=== PATIENT | female | born 1945 | race African-American/Black ===

== ENCOUNTER 2020-03-25 07:53 | Outpatient (CLI) | payer MEDICARE | END 2020-03-25 20:41 | disposition home or self-care (01) | LOC: MCT 07:53 | PROVIDERS: ATTEND Family Medicine | DX: R22.0 Localized swelling, mass and lump, head (principal) | CPT/HCPCS: 70450 ==

== ENCOUNTER 2020-04-06 18:36 | Emergency (ER) | payer MEDICARE, OTHER ==
[~2020-04-06] VITALS: Ht 172.7 cm; Wt 83.9 kg
[2020-04-06 18:41] VITALS: BP 165/50
--- NOTE | 2020-04-06 19:09 | NUR ---
SEE COMPLETE ASSESSMENT FOR FUTHER DETAILS.
--- NOTE | 2020-04-06 19:09 | NUR ---
RECIVED REPORT FROM BALDEMAR PORTER, CONTINUATION OF CARE.
--- NOTE | 2020-04-06 19:10 | NUR ---
PT TAKEN TO CT VIA GURNEY, RT AT BEDSIDE WITH PT.
--- NOTE | 2020-04-06 21:12 | NUR ---
PERNIEL CARE DONE FOR PT. PT HAD URINATED AND HAD BM IN DIAPER. PT SKIN LEFT CLEAN AND DRY. PT REPOSITIONED IN BED FOR COMFORT.
--- NOTE | 2020-04-06 22:58 | NUR ---
SPOKE WITH JASON TO GIVE REPORT ON PATIENT WHO IS RETURNING TO [facility] [place] [facility] S[facility]P D/C. Addendum: 04/06/20 at 2303 by ANDERSON QUYNH PORTER.
--- NOTE | 2020-04-06 23:06 | NUR ---
Patient appears to be resting comfortably in bed. Vital Signs within normal limits. Respirations even and unlabored. Pt repositoned in bed. Bed locked and in lowest position.
[2020-04-07 00:20] VITALS: BP 139/78
--- NOTE | 2020-04-07 00:20 | NUR ---
Patient discharged with v/s stable. Written and verbal after care instructions given and explained to patient caregiver via telephone. Ambulance Transport to alf. All questions addressed prior to discharge. Advised to follow up with PMD. Belongings sent with patient, ID band removed.
== END 2020-04-07 00:20 | disposition home or self-care (01) ==
LOC: MED 18:36
DX: R22.0 Localized swelling, mass and lump, head (principal); E11.9 Type 2 diabetes mellitus without complications; I10 Essential (primary) hypertension; Z98.890 Other specified postprocedural states
CPT/HCPCS: 70450; 99284

== ENCOUNTER 2021-09-26 17:56 | Inpatient (IN) | payer OTHER, MEDICARE ==
[~2021-09-26] VITALS: Ht 167.6 cm; Wt 104.3 kg
[2021-09-26 18:02] VITALS: BP 217/76
--- NOTE | 2021-09-26 18:30 | NUR ---
RAD AT BEDSIDE
--- NOTE | 2021-09-26 18:56 | NUR ---
ATTEMPTED TO STRAIGHT CATH, NO URINE NOTED, ERMD MADE AWARE
[2021-09-26 19:00] LABS: BASOPHILS # (AUTO) 0.1 K/uL (0.00-0.22); EOSINOPHILS # (AUTO) 0.3 K/uL (0-0.4); EOSINOPHILS % (AUTO) 5.3 % (0.0-4.0); HEMATOCRIT 37.6 % (36-48); LYMPHOCYTES % (AUTO) 30.5 % (20.5-51.1); MEAN CORPUSCULAR HEMOGLOBIN 28 pg (27-31); MEAN CORPUSCULAR HGB CONC 32 g/dL (33-37); MEAN CORPUSCULAR VOLUME 87.5 fL (80-94); MONOCYTES # (AUTO) 0.4 K/uL (0.8-1.0); MONOCYTES % (AUTO) 5.7 % (1.7-9.3); NEUTROPHILS # (AUTO) 3.7 K/uL (1.8-7.7); NEUTROPHILS % (AUTO) 57.5 % (42.2-75.2); PLATELET COUNT (AUTO) 334 K/uL (140-450); RED BLOOD CELL COUNT(AUTO) 4.29 MIL/uL (4.20-5.40); RED CELL DISTRIBUTION WIDTH 15.9 % (11.6-13.7); WHITE BLOOD COUNT (AUTO) 6.5 K/uL (4.8-10.8)
--- NOTE | 2021-09-26 19:19 | NUR ---
Pt report given to ZOYA PORTER. Transfer of care at this time.
[2021-09-26 19:21] LABS: ALBUMIN 3.2 g/dL (3.4-5.0); ASPARTATE AMINOTRANSFERASE 21 U/L (15-37); CHLORIDE 104 mmol/L (98-107); CREATININE 0.8 mg/dL (0.6-1.3); GLUCOSE 141 mg/dL (74-106); SODIUM SERUM 142 mmol/L (136-145); TOTAL BILIRUBIN 0.4 mg/dL (0.0-1.0); UREA NITROGEN, BLOOD 21 mg/dL (7-18)
--- NOTE | 2021-09-26 19:30 | NUR ---
RECEIVED PT ON VENT WITH A/C 16, VT 450CC FIO2 40 %, PEEP 5CM. PUREWICK IN PLACE, PEG INTACT
[2021-09-26] MEDS ORDERED: cefTRIAXone 1,000 MG VIAL ONE (20:47)
[2021-09-26 21:00] LABS: APPEARANCE,URINE CLOUDY (CLEAR); BILIRUBIN,URINE NEGATIVE (NEGATIVE); BLOOD, URINE 2+ (NEGATIVE); COLOR,URINE YELLOW (YELLOW); LEUKOCYTE ESTERASE ,URINE 3+ (NEGATIVE); NITRITE, URINE NEGATIVE (NEGATIVE); UGLUCOSE NEGATIVE (NEGATIVE)
[2021-09-26 21:22] LABS: RBC,URINE 11-20 (MOD) /HPF (0-5); WBC,URINE 20-60 /HPF (0-5)
--- NOTE | 2021-09-26 22:00 | NUR ---
UA OBTAINED, DIPPED AND RESULTS TO CHART
[2021-09-26] MEDS ORDERED: ACETAMINOPHEN 325 MG TAB PO PRN (23:10)
[2021-09-26] MEDS ORDERED: HYDROcodone/APAP 7.5/325 MG 1 TAB PO PRN (23:10)
[2021-09-26] MEDS ORDERED: guaiFENesin DM 200/20 MG-10 ML 10 ML UDC PO PRN (23:10)
[2021-09-26] MEDS ORDERED: ZOLPIDEM 5 MG TAB PO PRN (23:10)
[2021-09-26] MEDS ORDERED: POTASSIUM CHLORIDE 10 MEQ TABER PO PRN (23:10)
[2021-09-26] MEDS ORDERED: ONDANSETRON 4 MG/2 ML VIAL IM/IVP PRN (23:10)
[2021-09-26] MEDS ORDERED: DOCUSATE SODIUM 100 MG GELCAP PO PRN (23:10)
[2021-09-26 23:33] LABS: PROTHROMBIN TIME 10.5 secs (10.8-13.4)
[2021-09-26 23:43] LABS: CHOL/HDL RATIO 4.3 (1-4.5); FREE T4 (FREE THYROXINE) 1.59 ng/dL (0.76-1.46); MAGNESIUM 2.2 mg/dL (1.8-2.4); PHOSPHORUS 4.5 mg/dL (2.5-4.9); THYROID STIMULATING HORMONE 2.08 uIU/mL (0.34-3.74)
--- NOTE | 2021-09-27 | NUR ---
REPOSITIONED. SUCTIONED VIA TRACH PER RT
--- NOTE | 2021-09-27 03:20 | NUR ---
TO 110A VIA GURNEY, ATTACHED TO CM, ATTACHED TO VENT. RN, ERT, AND RT ACCOMPANYING
--- NOTE | 2021-09-27 03:30 | NUR ---
RECEIVED BEDSIDE HAND OFF REPORT FROM ER NURSE ZOYA AFTER ARRIVAL ON THE MST UNIT FOR CONTINUITY OF CARE.NEW ADMIT ARRIVED VIA GURNEY WITH VENT AND RESPIRATORY PLUS 3 ADDITIONAL PEOPLE TO TRANSFER PT TO RM 110 B BED AND SET UP. PT IS TRACH TO VENT WITH SETTINGS: FIO2-40, PEEP-5, TV-450, RATE-16 . ON TELE: ST WITH FREQ PAC'S. HAS IV L THUMB 22G FLUSHED AND PATENT. PEG TUBE LUQ. PT IS NPO. NO FEEDING AT THIS TIME. VSS BP HIGH ADMIT 0400:BP-124/95, P-98, RR-18, T-98.6, Y5RVM=53%.PT'S SKIN INTACT BUT SCALY. HAS FOOT DROP. INCONTINENT BUT PUREWICK IN PLACE. NO DRAINAGE NOTED. ALL SAFETY MEASURES IN PLACE. CALL LIGHT WITHIN REACH. WILL CONTINUE TO MONITOR.
[2021-09-27] MEDS: DEXT 5% /NACL 0.9% 1,000 ML IV SCH ×3 (06:00→22:27)
--- NOTE | 2021-09-27 06:30 | NUR ---
IVF STARTED D50.9NS @85CC/HR PER PUMP. WILL ENDORSE PT REPORT TO AM NURSE TO FOLLOW UP.
[2021-09-27 06:46] LABS: BASOPHILS # (AUTO) 0.1 K/uL (0.00-0.22); BASOPHILS % (AUTO) 0.7 % (0.0-2.0); EOSINOPHILS # (AUTO) 0.6 K/uL (0-0.4); EOSINOPHILS % (AUTO) 7.4 % (0.0-4.0); HEMATOCRIT 35.7 % (36-48); HEMOGLOBIN 11.6 g/dL (12.0-16.0); LYMPHOCYTES % (AUTO) 12.5 % (20.5-51.1); MEAN CORPUSCULAR HEMOGLOBIN 28 pg (27-31); MEAN CORPUSCULAR HGB CONC 33 g/dL (33-37); MEAN CORPUSCULAR VOLUME 86.6 fL (80-94); MONOCYTES # (AUTO) 0.4 K/uL (0.8-1.0); MONOCYTES % (AUTO) 5.1 % (1.7-9.3); NEUTROPHILS # (AUTO) 6.1 K/uL (1.8-7.7); NEUTROPHILS % (AUTO) 74.3 % (42.2-75.2); PLATELET COUNT (AUTO) 335 K/uL (140-450); RED BLOOD CELL COUNT(AUTO) 4.12 MIL/uL (4.20-5.40); WHITE BLOOD COUNT (AUTO) 8.2 K/uL (4.8-10.8)
[2021-09-27 06:48] LABS: ANION GAP 11.3 (8-16); CARBON DIOXIDE 30.3 mmol/L (21-32); CHLORIDE 105 mmol/L (98-107); CREATININE 0.7 mg/dL (0.6-1.3); POTASSIUM 3.6 mmol/L (3.5-5.1); SODIUM SERUM 143 mmol/L (136-145); UREA NITROGEN, BLOOD 16 mg/dL (7-18)
[2021-09-27 07:10] LABS: GLUCOSE 151 mg/dL (74-106)
[2021-09-27 08:00] VITALS: BP 171/65
--- NOTE | 2021-09-27 08:00 | NUR ---
RECEIVED PT ON XIONG AC 450, RR16, +5, 32%. WHEELS LOCKED AND PLUGGED INTO RED OUTLET. AMBUBAG AT BEDSIDE. ALL ALARMS ARE SET AND AUDIBLE. PT WAS RESTING COMFORTABLY.
--- NOTE | 2021-09-27 08:00 | NUR ---
RECEIVE ENDORSEMENT FROM PM SHIFT NURSE THAT PATIENT REST IN BED; JORJE TOUSSAINT PATENT, D5NS INFUSING AT 85ML/HR. WILL CONTINUE TO MONITOR.
--- NOTE | 2021-09-27 10:47 | NUR ---
PATIENT HAS BEEN SCREENED AND CATEGORIZED HIGH NUTRITION RISK. PATIENT WILL BE SEEN WITHIN 1-2 DA[address] OF ADMISSION. EMELYN DUFF RD
[2021-09-27] MEDS: PANTOPRAZOLE 40 MG TABEC PO SCH (11:40)
[2021-09-27 12:00] VITALS: BP 156/52
--- NOTE | 2021-09-27 13:00 | NUR ---
RECEIVED CALL FROM PATIENT'S DAUGHTER THAT STATES PATIENT'S THIS HOSPITAL VISIT PURPOSE IS HAVE PEG-TUBE AND TRACH REPLACEMENT WITH NO NEW IMMUNIZATION GIVEN. NURSE CHECKED PEG-TUBE RESIDUAL NORMAL. PCP INFORMED W/ NO NEW ORDER AT THIS TIME. WILL CONTINUE TO MONITOR.
--- NOTE | 2021-09-27 13:36 | NUR ---
DC PLANNING: THE PATIENT PRESENTED FROM HOME WITH A MALFUNCTIONING G-TUBE, H/O OF ICH, CVA, DM , HTN, QUADRIPLEGIA AND RESPIRATORY FAILURE, IS TRACH/VENT/PEG. UA DIP POSITIVE, STARTED ON ROCEPHIN IV AND IVF'S. MINERVA SPOKE WITH THE PATIENTS DAUGHTER BY PHONE AND CONFIRMED HER ADDRESS AND PHONE NUMBER, PATIENT LIVES IN [address] WHICH IS A SECOND FLOOR APARTMENT. THE PATIENT IS T[employer] AND HER DAUGHTER IS HER IHSS WORKER. SHE HAS DME OF VENTILATOR, O2, HOSPITAL BED, SUCTION MACHINE AND SET UP AND SHEA LIFT, WC AND SHOWER BENCH ARE REQUESTED. THE PATIENTS PEG FEEDINGS ARE BOLUS BY [employer] AND THE PATIENT IS ON SERVICE WITH [employer] ([phone]). MINERVA SPOKE WITH SYLVIA AT [facility], THE PATIENT IS BEING SEEN THROUGH THE WAIVER PROGRAM [facility] ON [place], CM WILL FAX ORDER AND CLINICALS TO THEM TO RESUME SERVICE UNDER PATIENTS MEDICARE B WHEN SHE IS READY TO DISCHARGE. SYLVIA CONFIRMED THAT PATIENTS RT AND DME ARE PROVIDED BY [employer] ([phone]). MINERVA SPOKE WITH [facility] REGARDING A WC AND SHOWER BENCH, THE SHOWER BENCH IS OUT OF POCKET. ONCE ORDER FOR WC IS FAXED TO THEM THEY WILL SEND THE FORM THAT NEEDS TO BE COMPLETED TO PROCESS THE ORDER. PATIENT WILL REQUIRE AMBULANCE TRANSPORT HOME WHEN CLINICALLY STABLE, MINERVA WILL SPEAK WITH [facility] TO CONFIRM COVERAGE OF TRANSPORT. CM WILL FOLLOW. Addendum: 09/29/21 at 1421 by Bessie Carpio CM DC PLANNING: PATIENT WITH POSITIVE URINE CULTURE, WILL LIKELY NEED IV ABX. MINERVA SPOKE WITH [employer], THEY WILL CHECK TO SEE IF THEY ARE ABLE TO PROVIDE COVERAGE. CM ALSO SPOKE WITH THE PATIENTS DAUGHTER AND CONFIRMED THAT SHE IS WILLING TO LEARN HOW TO ADMINISTER IV ABX. CM WILL FOLLOW. Addendum: 10/02/21 at 1104 by Bessie Carpio CM DC PLANNING: PATIENT TO DC HOME TODAY ON PO ABX VIA G-TUBE. TRANSPORT HOME ARRANGED WITH [facility] CCT, COMMUNITY LIAISON TIME [phone]. PATIENT DAUGHTER IS AWARE OF DC AND COMMUNITY LIAISON TIME. MINERVA ALSO SPOKE WITH [facility] TO RESUME SERVICES. MINERVA WILL FOLLOW. Addendum: 10/02/21 at 1633 by Bessie Carpio CM DC PLANNING: RECEIVED A CALL FROM THE CHARGE NURSE EAMON ASKING CM TO SPEAK WITH [facility] REGARDING THE PATIENTS VENT SETTINGS. CM ASKED RT TO SPEAK WITH [facility] AT BEDSIDE, CM ALSO WENT TO THEM. AFTER RT SPOKE WITH THE [facility] NURSE HE WAS COMFORTABLE TRANSPORTING PATIENT BUT WAS WAITING FOR MORE STAFF TO HELP CARRY THE GURNEY UPSTAIRS. CM SPOKE WITH THE PATIENTS DAUGHTER SEVERAL TIMES, SHE STATES THAT THE [facility] RESP. RT CAME TO THE HOUSE TO SET THE VENTILATOR, HER DAUGHTER ALSO STATES THAT SHE'S COMFORTABLE ATTACHING THE PATIENT TO THE HOME VENTILATOR THE RT WON'T BE THERE BUT WILL BE CLINICAL EDUCATION MANAGER. MINERVA EXPLAINED THAT THE [facility] STAFF WON'T TRANSITION HER MOTHER TO THE HOME VENTILATOR AND NEEDED TO CONFIRM THAT SHE IS ABLE TO DO THIS. MINERVA WILL FOLLOW.
--- NOTE | 2021-09-27 15:05 | NUR ---
PT. WITH LOW IDALIA SCALE AT MODERATE TO HIGH RISK, CONTINUE TO FOLLOW PRESSURE INJURY PREVENTION INTERVENTIONS. -POSITIONING: TURN AND REPOSITION PATIENT Q 2H OR SOONER USE PILLOWS TO KEEP BONY PROMINENCES FROM DIRECT CONTACT WITH SURFACES USE REPOSITIONING WEDGES TO PROVIDE 30-DEGREE ANGLE FOR SIDE LYING POSITIONS OFFLOADING OR FOAM DRESSING TO ALL TUBING TO PREVENT MEDICAL DEVICES RELATED PRESSURE INJURY -RE-EVALUATING AND MANAGING INCONTINENCE MONITOR SKIN CONDITION DURING POSITION CHANGE DO NOT MASSAGE REDNESS, BONY PROMINENCES FREQUENT VIVIENNE-CARE AND PROVIDE BARRIER CREAMS PRN IF SOILING MOISTURE CONTROL BY OFFER BED LIN/URINAL /ABSORBENT PAD TO WICK AND HOLD MOISTURE KEEP SKIN DRY AND PROTECT FROM FRICTION -MANAGE FRICTION/SHEAR/MOBILITY KEEP HOB AT THE LOWEST LEVEL OF ELEVATION NO MORE THAN 30 DEGREE UNLESS OTHERWISE CONTRAINDICATED USE LIFT SHEET OR TRANSFER DEVICE TO MOVE PATIENT AND PREVENT LATERAL SHEER. PROTECT HEELS, ELBOWS BONY PROMINENCES WITH SKIN BERRIES OR FOAM DRESSING IF EXPOSED TO FRICTION OFFLOAD BILATERAL HEELS BY PLACING PILLOWS UNDER CALVES AT ALL TIMES, UNLESS OTHERWISE CONTRAINDICATED -PRESSURE REDISTRIBUTION SURFACE THERAPY SIMON ISOFLEX MATTRESS -NUTRITION: PLEASE FOLLOW RD RECOMMENDATIONS AND OFFER NUTRITION SUPPLEMENTS IF ORDERED. PLEASE CONTACT WOUND CARE NURSE FOR ANY QUESTION AND CHANGE OF WOUND CONDITION.
[2021-09-27 16:00] VITALS: BP 181/66
--- NOTE | 2021-09-27 19:46 | NUR ---
ENDORSE PT TO PM SHIFT NURSE THAT PATIENT REST IN BED; PIV L.THUMB PATENT, D5NS INFUSING AT 85ML/HR W/ NO ACUTE DISTRESS NOTED
[2021-09-27 23:00] VITALS: BP 159/57
[2021-09-28 04:07] VITALS: BP 159/57
[2021-09-28 07:24] LABS: BASOPHILS % (AUTO) 0.6 % (0.0-2.0); EOSINOPHILS # (AUTO) 0.3 K/uL (0-0.4); EOSINOPHILS % (AUTO) 4.9 % (0.0-4.0); HEMATOCRIT 35.3 % (36-48); HEMOGLOBIN 11.2 g/dL (12.0-16.0); LYMPHOCYTES # (AUTO) 1.5 K/uL (2.5-16.5); LYMPHOCYTES % (AUTO) 24.1 % (20.5-51.1); MEAN CORPUSCULAR HEMOGLOBIN 28 pg (27-31); MEAN CORPUSCULAR HGB CONC 32 g/dL (33-37); MEAN CORPUSCULAR VOLUME 87.2 fL (80-94); MONOCYTES # (AUTO) 0.2 K/uL (0.8-1.0); MONOCYTES % (AUTO) 3.8 % (1.7-9.3); NEUTROPHILS # (AUTO) 4.2 K/uL (1.8-7.7); NEUTROPHILS % (AUTO) 66.6 % (42.2-75.2); PLATELET COUNT (AUTO) 344 K/uL (140-450); RED BLOOD CELL COUNT(AUTO) 4.05 MIL/uL (4.20-5.40); RED CELL DISTRIBUTION WIDTH 16.1 % (11.6-13.7); WHITE BLOOD COUNT (AUTO) 6.4 K/uL (4.8-10.8)
[2021-09-28 07:27] LABS: CARBON DIOXIDE 27.4 mmol/L (21-32); CHLORIDE 109 mmol/L (98-107); CREATININE 0.7 mg/dL (0.6-1.3); GLUCOSE 147 mg/dL (74-106); POTASSIUM 3.4 mmol/L (3.5-5.1); SODIUM SERUM 146 mmol/L (136-145); UREA NITROGEN, BLOOD 10 mg/dL (7-18)
--- NOTE | 2021-09-28 07:30 | NUR ---
RECEIVED REPORT FROM IVORY POLISHER NURSE. PT STABLE. NO S/S OF DISTRESS. CALL LIGHT IN REACH. ALL SAFETY MEASURES IN PLACE
--- NOTE | 2021-09-28 07:50 | NUR ---
PT RESTING IN BED, NO S/SX OF PAIN OR DISTRESS. IV FLUIDS RUNNING @LHAND G22. PT STABLE AT THIS TIME, NO S/SX OF PAIN OR DISTRESS. END OF SHIFT REPORT GIVEN TO INCOMING RN.
[2021-09-28 08:00] VITALS: BP 167/46
[2021-09-28] MEDS: PANTOPRAZOLE 40 MG TABEC PO SCH (09:00)
[2021-09-28] MEDS ORDERED: POTASSIUM CHLORIDE 20% 40 MEQ/15 ML UDC GT PRN (09:30)
[2021-09-28] MEDS: DEXT 5% /NACL 0.9% 1,000 ML IV SCH ×2 (10:53→21:22)
--- NOTE | 2021-09-28 11:30 | NUR ---
PT CLEANED AND CHANGED. PT VITALS TAKEN AFTER CHANGING WERE ELEVATED. WILL REASSESS VITALS WHEN PATIENT IS CALM. NO S/S OF DISTRESS. CALL LIGHT IN REACH. ALL SAFETY MEASURES IN PLACE
[2021-09-28 12:00] VITALS: BP 161/104
--- NOTE | 2021-09-28 14:28 | NUR ---
09/28/21 RD INITIAL ASSESSMENT COMPLETED PLEASE REFER TO NUTRITION ASSESSMENT UNDER CARE ACTIVITY FOR ESTIMATED NUTRITIONAL NEEDS. 1. RECOMMEND GLUCERNA 1.2 WITH A GOAL RATE OF 50 ML/HR WITH FWF 150 ML Q6H -START AT 20 ML/HR AND INCREASE BY 20 ML Q4H TOLERATED -WILL PROVIDE 1440 KCAL AND 72 GM PROTEIN, MEETING 98% ESTIMATED KCAL AND 100% ESTIMATED PROTEIN NEEDS 2. RD TO FOLLOW-UP 2-3 DAYS, HIGH RISK EMELYN DUFF RD
[2021-09-28 16:00] VITALS: BP 185/71
--- NOTE | 2021-09-28 16:07 | NUR ---
SPOKE TO PATIENT FAMILY. REQUESTING GTUBE AND TRACH REPLACEMENT. INFORMED FAMILY THAT PLACEMENTS ARE FOR ANGLE BENDER USE, FAMILY STATED THEY WERE TOLD PLACEMENTS ARE CHANGED MONTHLY. NOTIFIED MD OF COMMUNICATION, ALSO INFORMED MD OF GTUBE CONDITION. MD TO DETERMINE GTUBE REPLACEMENT, MD WILL DISCUSS AND EDUCATE FAMILY ON PLACEMENTS AND RISKS TO REPLACE UNNECESSARILY. EDUCATED FAMILY ON GTUBE CARE AND CLEANLINESS.
[2021-09-28] MEDS: hydrALAZINE 20 MG/ML VIAL IVP PRN (18:02)
--- NOTE | 2021-09-28 18:03 | NUR ---
PT BLOOD PRESSURE STILL ELEVATED WHEN REASSESSED. ADMINISTERED MEDICATION PER MD ORDER
--- NOTE | 2021-09-28 19:37 | NUR ---
ENDORSED PT TO BINDERY TECHNICIAN NURSE. PT STABLE NO S/S OF DISTRESS. SPOKE TO FAMILY, INFORMED ABOUT GTUBE REPLACEMENT BY MD. PT TOLERATED WELL. EDUCATED FAMILY ON CLEANING AND CARE FOR GTUBE.
--- NOTE | 2021-09-28 19:40 | NUR ---
RECEIVED REPORT FROM OUTGOING RN. PT RESTING IN BED, AWAKE ALERT X1. NEW GT IN PLACE WITH GLUCERNA 1.2 RUNNING @40/HR. TRACH TO VENT. FACIAL EXPRESSIONS CALM AND RELAXED. NO S/SX OF DISTRESS AT THIS TIME.
[2021-09-28 22:12] LABS: T4 (THYROXINE) 12.2 ug/dL (4.5 - 12.0)
[2021-09-29 04:44] VITALS: BP 162/69
[2021-09-29 07:35] LABS: BASOPHILS # (AUTO) 0.1 K/uL (0.00-0.22); BASOPHILS % (AUTO) 0.5 % (0.0-2.0); EOSINOPHILS # (AUTO) 0.1 K/uL (0-0.4); EOSINOPHILS % (AUTO) 0.9 % (0.0-4.0); HEMATOCRIT 32.2 % (36-48); HEMOGLOBIN 10.5 g/dL (12.0-16.0); LYMPHOCYTES # (AUTO) 1.2 K/uL (2.5-16.5); LYMPHOCYTES % (AUTO) 10.9 % (20.5-51.1); MEAN CORPUSCULAR HEMOGLOBIN 28 pg (27-31); MEAN CORPUSCULAR HGB CONC 33 g/dL (33-37); MEAN CORPUSCULAR VOLUME 86.4 fL (80-94); MONOCYTES # (AUTO) 0.6 K/uL (0.8-1.0); MONOCYTES % (AUTO) 5.6 % (1.7-9.3); NEUTROPHILS % (AUTO) 82.1 % (42.2-75.2); PLATELET COUNT (AUTO) 322 K/uL (140-450); RED BLOOD CELL COUNT(AUTO) 3.72 MIL/uL (4.20-5.40); RED CELL DISTRIBUTION WIDTH 15.9 % (11.6-13.7)
[2021-09-29 07:46] LABS: ANION GAP 14.8 (8-16); CARBON DIOXIDE 22.8 mmol/L (21-32); CHLORIDE 111 mmol/L (98-107); CREATININE 0.8 mg/dL (0.6-1.3); GLUCOSE 218 mg/dL (74-106); POTASSIUM 3.6 mmol/L (3.5-5.1); SODIUM SERUM 145 mmol/L (136-145); UREA NITROGEN, BLOOD 9 mg/dL (7-18)
[2021-09-29 08:00] VITALS: BP 165/78
--- NOTE | 2021-09-29 08:00 | NUR ---
RECEIVED REPORT FROM AIR BRAKE MAN FOR CONTINUITY OF CARE. PATIENT IS TRACH TO VENT NO SIGN OF DISTRESS NOTED. WITH IVF ON GOING AND INFUSING WELL. WITH G-TUBE AND FEEDING JEVITY 1.2 @ 40 ML/HR INFUSING WELL. ON MONITOR SHOWS ST. NEEDS ATTENDED. WILL CONTINUE TO MONITOR.
[2021-09-29] MEDS: PANTOPRAZOLE 40 MG INJ VIAL IVP SCH (08:52)
[2021-09-29] MEDS: DEXT 5% /NACL 0.9% 1,000 ML IV SCH ×2 (08:53→21:06)
--- NOTE | 2021-09-29 10:00 | NUR ---
PATIENT CHANGED, REPOSITIONED NEEDED. WILL CONTINUE TO MONITOR.
[2021-09-29 12:00] VITALS: BP 165/89
--- NOTE | 2021-09-29 15:25 | NUR ---
DC PLANNING PATIENT IS A 76 YR OLD FEMALE WHO ARRIVED TO [facility] ON 09/26/21 FOR MALFUNCTIONING G TUBE. PATIENT HAS HX OF ICH, [facility], DM, HTN, QUADRIPLEGIA AND RESP. FAILURE. PATIENT IS TRACH/VENT/PEG SW ATTEMPTED TO REACH PATIENTS DAUGHTER BY PHONE HOWEVER WAS UNSUCCESSFUL AT REACHING. SW GATHERED COLLATERAL INFORMATION FROM MINERVA. IT IS REPORTED THAT PATIENT RESIDES WITH HER DAUGHTER TETE JOSEPH [phone] AND IS THE PATIENTS [facility] CAREGIVER, DAUGHTER WAS UNSURE ON THE NUMBER OF HOURS ALLOTTED PER MONTH. PATIENT REQUIRES TOTAL CARE AND UTILIZES DME THAT INCLUDE VENTILATOR, O2, SUCTION MACHINE, HOSPITAL BED AND LIFT. PATIENT RECEIVES HH SERVICES FROM [employer] [phone]. MINERVA IS WORKING WITH INSURANCE FOR . DC PLAN IS FOR PATIENT TO RETURN HOME AND RESUME HH SERVICES.
[2021-09-29 16:00] VITALS: BP 158/74
--- NOTE | 2021-09-29 17:05 | NUR ---
PATIENT RESTING IN BED NO SIGN OF DISTRESS NOTED. CHANGED POSITION.
--- NOTE | 2021-09-29 19:09 | NUR ---
REPORT GIVEN TO [id number] FOR CONTINUITY OF CARE. PATIENT IN STABLE CONDITION.
--- NOTE | 2021-09-29 19:12 | NUR ---
SEEN BY DR. HINKLE AND TOLD HIM REGARDING URINE CX AND AWARE.
[2021-09-29 20:00] VITALS: BP 172/99
--- NOTE | 2021-09-29 22:38 | NUR ---
RECEIVED REPORT AT BEDSIDE.PT IS TRACH TO VENT IN STABLE CONDITION.RESP.UNLABORED IVF INFUSING WELL.HR IS ST.G-T FEEDING IS IN PROGRESS.NO S/S OF ANY PAIN NOTED.WILL CONTINUE MONITORING.
[2021-09-30] VITALS: BP 151/63
--- NOTE | 2021-09-30 00:30 | NUR ---
CONDITION STABLE.NO S/S OF ANY DISTRESS NOTED.
[2021-09-30 04:00] VITALS: BP 163/82
--- NOTE | 2021-09-30 06:43 | NUR ---
SLEPT WELL.NO RESP.DISTRESS NOTED.
--- NOTE | 2021-09-30 07:03 | NUR ---
HER DAUGHTER CALLED LAST NIGHT AND SAID THAT HER MOM DIDN'T TAKE ANY VACCINE EVEN COVID VACCINE.
--- NOTE | 2021-09-30 07:18 | NUR ---
ENDORSED TO SAPNA PORTER IN STABLE CONDITION.
[2021-09-30 07:23] LABS: BASOPHILS # (AUTO) 0.1 K/uL (0.00-0.22); BASOPHILS % (AUTO) 0.5 % (0.0-2.0); EOSINOPHILS # (AUTO) 0.1 K/uL (0-0.4); EOSINOPHILS % (AUTO) 1.3 % (0.0-4.0); HEMATOCRIT 35.2 % (36-48); HEMOGLOBIN 11.4 g/dL (12.0-16.0); LYMPHOCYTES # (AUTO) 1.3 K/uL (2.5-16.5); LYMPHOCYTES % (AUTO) 12.3 % (20.5-51.1); MEAN CORPUSCULAR HEMOGLOBIN 28 pg (27-31); MEAN CORPUSCULAR HGB CONC 32 g/dL (33-37); MEAN CORPUSCULAR VOLUME 86.2 fL (80-94); MONOCYTES # (AUTO) 0.7 K/uL (0.8-1.0); MONOCYTES % (AUTO) 6.5 % (1.7-9.3); NEUTROPHILS # (AUTO) 8.1 K/uL (1.8-7.7); NEUTROPHILS % (AUTO) 79.4 % (42.2-75.2); PLATELET COUNT (AUTO) 266 K/uL (140-450); RED BLOOD CELL COUNT(AUTO) 4.08 MIL/uL (4.20-5.40); RED CELL DISTRIBUTION WIDTH 15.9 % (11.6-13.7); WHITE BLOOD COUNT (AUTO) 10.3 K/uL (4.8-10.8)
[2021-09-30 07:36] LABS: ANION GAP 14.5 (8-16); CARBON DIOXIDE 23.1 mmol/L (21-32); CHLORIDE 105 mmol/L (98-107); CREATININE 0.6 mg/dL (0.6-1.3); GLUCOSE 236 mg/dL (74-106); POTASSIUM 3.6 mmol/L (3.5-5.1); SODIUM SERUM 139 mmol/L (136-145); UREA NITROGEN, BLOOD 8 mg/dL (7-18)
[2021-09-30 08:00] VITALS: BP 179/76
--- NOTE | 2021-09-30 08:00 | NUR ---
RECEIVED REPORT FROM [facility] DESIGN SUPERVISOR NURSE FOR CONTINUITY OF CARE PATIENT SLEEPING BUT EASILY AWAKE. OPEN HER EYES FOR VOICES. TRACH TO VENT FIO2 35% . NO S/S OF RESP DISTRESS NOTED. IV LINE ON RIGHT FOREARM GUAGE 22 INTACT AND PATENT. G-TUBE REPLACED BY DR MCCOY , FEEDING TUBE RUNNING AT 35 TOLERATED WELL NO RESIDUAL NOTED. BLISTER NOTED O LEFT HAND, NOTIFIED DR CARTER. PLAN OF CARE DISCUSSED WITH PATIENT VITALS STABLE WILL CONTINUE TO MONITOR.
--- NOTE | 2021-09-30 09:00 | NUR ---
DUE MEDS GIVEN TOLERATED WELL. MORNING CARE GIVEN. NO RESIDUAL ON THE G-TUBE SIDE. WILL CONTINUE TO MONITOR
[2021-09-30] MEDS: PANTOPRAZOLE 40 MG INJ VIAL IVP SCH (09:17)
[2021-09-30 12:00] VITALS: BP 162/54
--- NOTE | 2021-09-30 12:00 | NUR ---
RECEIVED A CALL FROM PT'S DAUGHTER REQUESTING THE DR TO CALL HER AND PREFERRED PATIENT TO COME HOME NOT SNF. NOTIFIED DR CARTER AND PER AWAITING FOR DR HINKLE. VITALS STABLE WILL CONTINUE TO MONITOR.
[2021-09-30 16:00] VITALS: BP 159/74
--- NOTE | 2021-09-30 16:00 | NUR ---
SLEEPING COMFORTABLY NO DISTRESS NOTED. VITALS STABLE. KEPT PATIENT CLEAN AND DRY WILL CONTINUE TO MONITOR.
--- NOTE | 2021-09-30 18:59 | NUR ---
REMAINED STABLE. REPOSITION Q2HRS THROUGH OUT THE DAY. NO DISTRESS NOTED VITALS STABLE. ENDORSE THE CARE TO SOCIAL SERVICE COORDINATOR
--- NOTE | 2021-09-30 19:15 | NUR ---
RECEINED PATIENT FROM AM NURSE FOR CONTINUITY OF CARE.PT IS STABLE
[2021-09-30 20:00] VITALS: BP 156/84
--- NOTE | 2021-09-30 21:30 | NUR ---
ALL SCHEDULED MEDS GIVEN,NO ADVERSE REACTIONS NOTED
[2021-10-01] VITALS (7 sets, daily range): BP systolic 123–184; BP diastolic 0–81
--- NOTE | 2021-10-01 01:00 | NUR ---
PATIENT ASLEEP, NO DISTRESS NOTED
--- NOTE | 2021-10-01 01:00 | NUR ---
SLEEPING AT THIS TIME,NO SOB NOTED
--- NOTE | 2021-10-01 03:00 | NUR ---
PATIENT FEELS RELAXED AFTER SUCTIONING, NO DISTRESS NOTED
--- NOTE | 2021-10-01 06:03 | NUR ---
CLEANED AMD REPOSITIONED THE PATIENT, NO DISTRESS NOTED
[2021-10-01 07:07] LABS: BASOPHILS # (AUTO) 0.1 K/uL (0.00-0.22); BASOPHILS % (AUTO) 0.8 % (0.0-2.0); EOSINOPHILS # (AUTO) 0.3 K/uL (0-0.4); EOSINOPHILS % (AUTO) 3.6 % (0.0-4.0); HEMATOCRIT 34.5 % (36-48); HEMOGLOBIN 11.1 g/dL (12.0-16.0); LYMPHOCYTES # (AUTO) 1.6 K/uL (2.5-16.5); MEAN CORPUSCULAR HEMOGLOBIN 28 pg (27-31); MEAN CORPUSCULAR HGB CONC 32 g/dL (33-37); MEAN CORPUSCULAR VOLUME 85.6 fL (80-94); MONOCYTES # (AUTO) 0.6 K/uL (0.8-1.0); MONOCYTES % (AUTO) 6.2 % (1.7-9.3); NEUTROPHILS # (AUTO) 6.9 K/uL (1.8-7.7); NEUTROPHILS % (AUTO) 72.4 % (42.2-75.2); PLATELET COUNT (AUTO) 274 K/uL (140-450); RED BLOOD CELL COUNT(AUTO) 4.04 MIL/uL (4.20-5.40); RED CELL DISTRIBUTION WIDTH 15.8 % (11.6-13.7); WHITE BLOOD COUNT (AUTO) 9.5 K/uL (4.8-10.8)
[2021-10-01 07:21] LABS: ANION GAP 12.1 (8-16); CARBON DIOXIDE 24.6 mmol/L (21-32); CHLORIDE 105 mmol/L (98-107); CREATININE 0.6 mg/dL (0.6-1.3); GLUCOSE 215 mg/dL (74-106); POTASSIUM 3.7 mmol/L (3.5-5.1); SODIUM SERUM 138 mmol/L (136-145); UREA NITROGEN, BLOOD 10 mg/dL (7-18)
--- NOTE | 2021-10-01 08:29 | NUR ---
RECEIVED ENDORSEMENT FROM PM SHIFT NURSE THAT PATIENT REST IN BED JORJE BAEZA PATIENT AND D5NS INFUSING AT 15ML/HR. WILL CONTINUE TO MONITOR
[2021-10-01] MEDS: PANTOPRAZOLE 40 MG INJ VIAL IVP SCH (09:00)
[2021-10-01] MEDS ORDERED: SULF-58 PO (10:49)
[2021-10-01] MEDS ORDERED: DOCU-299 PO (10:49)
[2021-10-01] MEDS ORDERED: PANT40EC PO (10:49)
[2021-10-01] MEDS: hydrALAZINE 20 MG/ML VIAL IVP PRN (12:44)
--- NOTE | 2021-10-01 14:38 | NUR ---
RECEIVED CALL FROM PATIENT'S DAUGHTER AND NURSE INFORM THAT PATIENT'S HAS NEW G-TUBE. PATIENT'S DAUGHTER REMIND THAT PATIENT DOESN'T TAKE ANY VACCINATION. NOTES THAT PATIENT'S BP 172/64, 184/73, GAVE HYDRALAZINE X1 BRING BP TO 123/66 PULSE STILL OVER 100 EVEN AFTER GAVE PAIN MEDICATION NORCO. WILL CONTINUE TO MONITOR.
--- NOTE | 2021-10-01 14:56 | NUR ---
CHECKED WITH PATIENT REGARDING TO HER PREFERED PHARMACY. PATIENT STATE THAT SHE NORMAL USE LOCAL [facility] CLOSE TO THE HOSPITAL.
[2021-10-01] MEDS ORDERED: HYDR-1098 PO (15:13)
[2021-10-01] MEDS: METOPROLOL 25 MG TAB GT SCH ×2 (16:10→21:00)
--- NOTE | 2021-10-01 16:39 | NUR ---
10/01/21 RD FOLLOW UP COMPLETED.PLEASE REFER TO NUTRITION ASSESSMENT UNDER CARE ACTIVITY FOR ESTIMATED NUTRITIONAL NEEDS. 1. CONTINUE GLUCERNA 1.2 @ 40ML/HR WITH FWF [address] TO FOLLOW-UP 2-3 DAYS, HIGH RISK CHRISTINE FLAHERTY RD
--- NOTE | 2021-10-01 19:55 | NUR ---
ENDORSE PT TO PM SHIFT NURSE THAT PATIENT REST IN BED PIV R. THUMB PATIENT AND D5NS INFUSING AT 15ML/HR
--- NOTE | 2021-10-01 20:16 | NUR ---
RECEIVED PT TRACH TO VENT WITH A PORTEX 8 ON A [employer] R860 VENTILATOR SETTINGS AC VT450, RR16, PEEP+5, FIO2 28%. NO SIGNS OF RESPIRATORY DISTRESS NOTED AT THIS TIME PT'S CURRENT SATURATION IS 93%. ANTERIOR AUSCULTATION REVEALED BS COARSE CRACKLES THROUGHOUT, SX LARGE PALE/YELLOW THICK SECRETIONS. HOB ELEVATED, ORAL CARE DONE, AMBU BAG AT BEDSIDE, VENT PLUGGED INTO RED OUTLET. WILL CONTINUE TO MONITOR.
--- NOTE | 2021-10-01 20:17 | NUR ---
RESPONDED TO REQUEST FOR SERVICE DUE TO DECREASE IN SPO2 AND HIGH PEAK PRESSURE ALARM. ANTERIOR AUSCULTATIONS REVEALED COARSE BREATH SOUNDS THROUGHOUT LUNG TEAGUE. PT WAS DISCONNECTED FROM VENTILATOR AND BAGGED WITH MINIMAL RESISTANCE. SXN LARGE PALE/YELLOW THICK SECRETIONS, INCREASED FIO2 TO 100%, FLOW RATE DECREASED TO 30LPM. SPO2 STEADY INCREASING, PIP ALARM NO LONGER ON. WILL CONTINUE TO MONITOR. Addendum: 10/01/21 at 2250 by Gabriel Glover RT CORRECTION OF TIME : 22:17
[2021-10-02] VITALS: BP 147/72
--- NOTE | 2021-10-02 00:59 | NUR ---
PATIENT AWAKE NON VERBRAL DUE TO HAVING A TRACH ON PRVC RATE 16, TV 450, FI02 36%. PEEP 5. SAT 94% LUNGS DIMINISH ON MONITOR SINUS TACH HEART RATE 106.TEMP 98.7 PATIENT HAS GLUCERNIA 1.2 AT 40 HOUR. NO RESIDUAL AT 2000.AND 0000 PATIENT IS INCONT. HAS BLISTER ON LEFT HAND.FAMILY MADE AWARE.HAS WATER FLUSH EVERY SIX HOUR 150 ML HOUR.
[2021-10-02 04:00] VITALS: BP 140/70
[2021-10-02 07:43] LABS: BASOPHILS # (AUTO) 0.1 K/uL (0.00-0.22); BASOPHILS % (AUTO) 0.5 % (0.0-2.0); EOSINOPHILS # (AUTO) 0.2 K/uL (0-0.4); EOSINOPHILS % (AUTO) 2.1 % (0.0-4.0); HEMATOCRIT 27.6 % (36-48); LYMPHOCYTES # (AUTO) 1.3 K/uL (2.5-16.5); LYMPHOCYTES % (AUTO) 12.6 % (20.5-51.1); MEAN CORPUSCULAR HEMOGLOBIN 28 pg (27-31); MEAN CORPUSCULAR HGB CONC 33 g/dL (33-37); MONOCYTES # (AUTO) 0.5 K/uL (0.8-1.0); MONOCYTES % (AUTO) 4.7 % (1.7-9.3); NEUTROPHILS % (AUTO) 80.1 % (42.2-75.2); PLATELET COUNT (AUTO) 262 K/uL (140-450); RED BLOOD CELL COUNT(AUTO) 3.21 MIL/uL (4.20-5.40); RED CELL DISTRIBUTION WIDTH 15.6 % (11.6-13.7)
[2021-10-02 08:00] VITALS: BP 131/68
[2021-10-02 08:03] LABS: ANION GAP 10.8 (8-16); CARBON DIOXIDE 26.1 mmol/L (21-32); CHLORIDE 105 mmol/L (98-107); CREATININE 0.6 mg/dL (0.6-1.3); GLUCOSE 159 mg/dL (74-106); POTASSIUM 3.9 mmol/L (3.5-5.1); SODIUM SERUM 138 mmol/L (136-145); UREA NITROGEN, BLOOD 12 mg/dL (7-18)
--- NOTE | 2021-10-02 08:54 | NUR ---
RECEIVED ENDORSEMENT FROM PM SHIFT NURSE THAT PATIENT REST IN BED PIV John THUMB PATIENT AND D5NS INFUSING AT 15ML/HR. D/C HOME ORDER IN PLACE. WILL CONTINUE TO MONITOR
[2021-10-02] MEDS: METOPROLOL 25 MG TAB GT SCH (09:37)
[2021-10-02] MEDS: PANTOPRAZOLE 40 MG INJ VIAL IVP SCH (09:39)
[2021-10-02 11:32] VITALS: BP 131/68
[2021-10-02 12:00] VITALS: BP 152/68
--- NOTE | 2021-10-02 17:45 | NUR ---
D/C PATIENT HOME PER PCP ORDER AND FAMILY REQUEST. PATIENT STABLE, IV ACCESS & ARM BAND REMOVED. PATIENT IS TRANSPORT BY [facility] SUPERVISOR/PORT DIRECTOR TO HOME
== END 2021-10-02 16:55 | disposition home or self-care (01) | DRG 720 ==
LOC: MED 17:56 → MTU 22:55
PROVIDERS: ADMIT Family Medicine; ATTEND Family Medicine
PROC: 5A1955Z Respiratory Ventilation, Greater than 96 Consecutive Hours (ICD-10-PCS; principal; 2021-09-26)
DX: A41.9 Sepsis, unspecified organism (principal); G82.50 Quadriplegia, unspecified; J96.10 Chronic respiratory failure, unspecified whether with hypoxia or hypercapnia; E44.1 Mild protein-calorie malnutrition; K94.23 Gastrostomy malfunction; E87.0 Hyperosmolality and hypernatremia; I48.91 Unspecified atrial fibrillation; N39.0 Urinary tract infection, site not specified; E11.9 Type 2 diabetes mellitus without complications; Z20.822 Contact with and (suspected) exposure to COVID-19; R13.10 Dysphagia, unspecified; I16.0 Hypertensive urgency; E78.5 Hyperlipidemia, unspecified; I48.0 Paroxysmal atrial fibrillation; B96.4 Proteus (mirabilis) (morganii) as the cause of diseases classified elsewhere; I11.0 Hypertensive heart disease with heart failure; I50.9 Heart failure, unspecified; Z99.11 Dependence on respirator [ventilator] status; Z86.73 Personal history of transient ischemic attack (TIA), and cerebral infarction without residual deficits; Z68.37 Body mass index [BMI] 37.0-37.9, adult
CPT/HCPCS: 36415; 71045; 80048; 80053; 81001; 82150; 83036; 83605; 83690; 83735; 83880; 84100; 84436; 84439; 84443; 84479; 84484; 85025; 85610; 85730; 87040; 87081; 87086; 93005; 94003; 96365; 99285; C9113; J0360; J0696; J7060; Q0092